=== PATIENT | male | born 1980 | race Caucasian/White ===

== ENCOUNTER 2023-09-16 01:28 | Emergency (ER) | payer OTHER ==
[~2023-09-16] VITALS: Ht 175.3 cm; Wt 74.8 kg
[2023-09-16 02:41] LABS: BASOPHILS % (AUTO) 0.6 % (0.0-2.0); EOSINOPHILS # (AUTO) 0.2 K/uL (0.0-0.7); EOSINOPHILS % (AUTO) 3.6 % (0.0-6.0); HEMATOCRIT 37 % (39-51); HEMOGLOBIN 12.6 g/dL (13.5-17.5); LYMPHOCYTES # (AUTO) 1.8 K/uL (0.8-4.8); LYMPHOCYTES % (AUTO) 28.9 % (20.0-44.0); MEAN CORPUSCULAR HEMOGLOBIN 30 PG (26.0-33.0); MEAN CORPUSCULAR HGB CONC 34 g/dl (31.0-36.0); MEAN CORPUSCULAR VOLUME 86 fL (80-96); MONOCYTES # (AUTO) 0.4 K/uL (0.1-1.30); MONOCYTES % (AUTO) 5.7 % (2.0-12.0); NEUTROPHILS # (AUTO) 3.8 K/uL (1.8-8.9); NEUTROPHILS % (AUTO) 61.2 % (43.0-81.0); PLATELET COUNT (AUTO) 307 K/uL (150-450); RED BLOOD CELL COUNT(AUTO) 4.27 MIL/uL (4.5-6.0); WHITE BLOOD COUNT (AUTO) 6.1 K/uL (4.3-11.0)
[2023-09-16 02:50] LABS: CREATININE 1.2 mg/dL (0.6-1.3); POTASSIUM 3.3 mmol/L (3.5-5.1)
[2023-09-16] MEDS ORDERED: LOPERAMIDE HCL (2 MG CAP) 2 MG CAPSULE ONE (03:00)
[2023-09-16] MEDS ORDERED: POTASSIUM CHLORIDE 20 MEQ TAB.PRT.SR PO ONE (03:00)
[2023-09-16] MEDS ORDERED: IBUPROFEN 600 MG TABLET ONE (03:00)
[2023-09-16] MEDS: LOPERAMIDE HCL (2 MG CAP) 2 MG CAPSULE PO ONE (03:04)
[2023-09-16] MEDS: POTASSIUM CHLORIDE 20 MEQ TAB.PRT.SR PO ONE (03:04)
[2023-09-16] MEDS: IBUPROFEN 600 MG TABLET PO ONE (03:04)
[2023-09-16 03:05] VITALS: BP 134/86; TEMP 98.9; O2SAT 98
== END 2023-09-16 03:05 | disposition home or self-care (01) ==
LOC: ER 01:30
DX: R19.7 Diarrhea, unspecified (principal); R10.9 Unspecified abdominal pain; Z59.00 Homelessness unspecified
CPT/HCPCS: 36415; 80048-TC; 85025-TC

== ENCOUNTER 2023-09-26 07:31 | Emergency (ER) | payer OTHER ==
[~2023-09-26] VITALS: Ht 167.6 cm; Wt 66.2 kg
[2023-09-26 09:25] VITALS: BP 136/71; TEMP 97.8; O2SAT 98
== END 2023-09-26 09:25 | disposition home or self-care (01) ==
LOC: ER 07:43
DX: L02.416 Cutaneous abscess of left lower limb (principal); G89.29 Other chronic pain; M54.9 Dorsalgia, unspecified; Z59.00 Homelessness unspecified

== ENCOUNTER 2024-09-07 13:43 | Emergency (ER) | payer OTHER ==
[~2024-09-07] VITALS: Ht 175.3 cm; Wt 68.0 kg
[2024-09-07 14:58] LABS: PLATELET COUNT (AUTO) 321 K/uL (150-450); RED BLOOD CELL COUNT(AUTO) 5.12 MIL/uL (4.5-6.0); RED CELL DISTRIBUTION WIDTH 13.9 % (11.5-15.0); WHITE BLOOD COUNT (AUTO) 14.4 K/uL (4.3-11.0)
[2024-09-07 15:07] LABS: CALCIUM, SERUM 8.8 mg/dL (8.5-10.1); CREATININE 1.3 mg/dL (0.6-1.3); SODIUM SERUM 143.0 mmol/L (136-145); UREA NITROGEN, BLOOD 34.0 mg/dL (7-18)
[2024-09-07 15:12] LABS: ALCOHOL, BLOOD 132.0 mg/dL (0-10); ASPARTATE AMINOTRANSFERASE 69.0 U/L (15-37); TOTAL PROTEIN, SERUM 7.6 g/dL (6.4-8.2)
[2024-09-07] MEDS ORDERED: DEXTROSE 50%-WATER 50 ML DISP.SYRIN ONE (15:15)
[2024-09-07] MEDS: DEXTROSE 50%-WATER 50 ML DISP.SYRIN IVP ONE (15:24)
[2024-09-07 18:24] LABS: APPEARANCE,URINE CLEAR (CLEAR); BLOOD, URINE NEGATIVE Ery/uL (NEGATIVE); LEUKOCYTE ESTERASE ,URINE NEGATIVE (NEGATIVE); NITRITE, URINE NEGATIVE (NEGATIVE); UGLUCOSE NEGATIVE (NEGATIVE)
[2024-09-07 18:33] LABS: BARBITURATE, URINE NEGATIVE (NEGATIVE); BENZODIAZEPINE, URINE NEGATIVE (NEGATIVE); COCCAINE, URINE NEGATIVE (NEGATIVE); OPIATE, URINE NEGATIVE (NEGATIVE)
[2024-09-07 18:34] LABS: AMPHETAMINE, URINE POSITIVE (NEGATIVE); CANNABINOID, URINE POSITIVE (NEGATIVE)
[2024-09-07 18:50] LABS: ADD URINE CULTURE NO; SQUAMOUS EPITHELIAL CELL,UR Rare /HPF (None Seen)
[2024-09-07 20:00] VITALS: TEMP 98.2
[2024-09-07 20:30] VITALS: BP 120/74; O2SAT 98
== END 2024-09-07 20:30 | disposition home or self-care (01) ==
LOC: ER 13:46
DX: F10.129 Alcohol abuse with intoxication, unspecified (principal); G89.29 Other chronic pain; Z20.822 Contact with and (suspected) exposure to COVID-19; Z79.899 Other long term (current) drug therapy; Y90.6 Blood alcohol level of 120-199 mg/100 ml
CPT/HCPCS: 36415; 80048-TC; 80076-TC; 81001; 82962-TC; 85025-TC; G0480

== ENCOUNTER 2024-11-30 10:10 | Emergency (ER) | payer OTHER ==
[~2024-11-30] VITALS: Ht 170.2 cm; Wt 61.2 kg
[2024-11-30 11:27] VITALS: BP 110/76; TEMP 97.8; O2SAT 96
== END 2024-11-30 12:28 | disposition home or self-care (01) ==
LOC: ER 10:17
DX: R19.7 Diarrhea, unspecified (principal); Z59.00 Homelessness unspecified